=== PATIENT | male | born 1945 | race Caucasian/White ===

== ENCOUNTER 2016-07-14 06:56 | Inpatient (IN) | payer MEDICARE, OTHER ==
[2016-07-14] VITALS (437 sets, daily range): BP systolic 109–137; BP diastolic 70–88; PULSE 69–93; TEMP 97.7–98.7; O2SAT 87–99
[~2016-07-14] VITALS: Ht 175.3 cm; Wt 109.8 kg
[2016-07-14 07:52] LABS: MEAN CELL VOLUME 85 fl (80.0-100.0); MEAN CORPUSCULAR HGB CONC 30 g/dl (33.0-37.0); PLATELET COUNT 217 K/mm3 (130-400); RED BLOOD COUNT 3.73 M/mm3 (4.20-5.60); REDCELL DISTRIBUTION WIDTH-CV 16.4 % (11.5-14.5); WHITE BLOOD COUNT 7.5 K/mm3 (4.8-10.8)
[2016-07-14 07:57] LABS: HEMATOCRIT 31.8 % (42.0-52.0); HEMOGLOBIN 9.5 g/dl (13.5-18.0); MEAN CORPUSCULAR HEMOGLOBIN 25 pg (27.0-31.0)
[2016-07-14] MEDS ORDERED: TYLENOL 325MG325 MG PO (07:58)
[2016-07-14 07:59] LABS: PROTHROMBIN TIME 22.3 SECONDS (9.7-12.8)
[2016-07-14] MEDS ORDERED: CORRECTIVE LAXAT5 MG PO (07:59)
[2016-07-14] MEDS ORDERED: ASPIRIN E.C. 8181 MG PO (07:59)
[2016-07-14] MEDS ORDERED: CORDARONE200 MG/TAB PO (07:59)
[2016-07-14] MEDS ORDERED: COREG 3.123.125 MG/T PO (08:00)
[2016-07-14] MEDS ORDERED: LASIX 40MG TABL40 MG PO (08:00)
[2016-07-14 08:01] LABS: CALCIUM 9.1 mg/dL (8.4-10.2); CREATININE, serum 1.31 mg/dL (0.66-1.25); POTASSIUM 4.4 mmol/L (3.4-5.0)
[2016-07-14] MEDS ORDERED: NEURONTIN100 MG/CAP PO (08:01)
[2016-07-14] MEDS ORDERED: GLUCOTROL 5M5 MG/TAB PO (08:01)
[2016-07-14] MEDS ORDERED: LANTUS100 U/ML SQ (08:02)
[2016-07-14] MEDS ORDERED: MAG-OX 400400 MG/TAB PO (08:03)
[2016-07-14] MEDS ORDERED: KRILL OIL 3001 EACH PO (08:03)
[2016-07-14] MEDS ORDERED: MULTIPLE VITAMI1 CAP PO (08:13)
[2016-07-14] MEDS ORDERED: OXY IR5 MG PO (08:14)
[2016-07-14] MEDS ORDERED: CRESTOR20 MG PO (08:15)
[2016-07-14] MEDS ORDERED: FLOMAX 0.40.4 MG/CAP PO (08:15)
[2016-07-14] MEDS ORDERED: COUMADIN 22.5 MG/TAB PO (08:15)
[2016-07-15] VITALS (342 sets, daily range): BP systolic 87–131; BP diastolic 50–87; PULSE 69–76; TEMP 97–99.5; O2SAT 84–100
[2016-07-16 01:15] VITALS: BP 109/73; PULSE 69
[2016-07-16 03:26] VITALS: BP 119/66; PULSE 69; TEMP 98.2
[2016-07-16 07:35] VITALS: BP 108/85; PULSE 70; TEMP 98.4
[2016-07-16] MEDS ORDERED: BETAPACE 80MG80 MG PO (11:56)
== END 2016-07-16 13:05 | disposition home or self-care (01) | DRG 245 ==
LOC: COL.RAD 06:56 → ICU 12:00 → COL.RAD 12:15 → MEDICAL 07-15 11:02
PROVIDERS: Internal Medicine Cardiovascular Disease
PROC: 0JPT0PZ Removal of Cardiac Rhythm Related Device from Trunk Subcutaneous Tissue and Fascia, Open Approach (ICD-10-PCS; principal; 2016-07-14)
PROC: 0JH609Z Insertion of Cardiac Resynchronization Defibrillator Pulse Generator into Chest Subcutaneous Tissue and Fascia, Open Approach (ICD-10-PCS; 2016-07-14)
DX: Z45.010 Encounter for checking and testing of cardiac pacemaker pulse generator [battery] (principal); I50.22 Chronic systolic (congestive) heart failure; I48.0 Paroxysmal atrial fibrillation; I25.5 Ischemic cardiomyopathy; I25.10 Atherosclerotic heart disease of native coronary artery without angina pectoris; E11.9 Type 2 diabetes mellitus without complications; Z95.1 Presence of aortocoronary bypass graft; Z95.2 Presence of prosthetic heart valve; Z87.891 Personal history of nicotine dependence; Z79.4 Long term (current) use of insulin
CPT/HCPCS: OP; A6212; A6248; J0690; J1815; J2250; J3010; J7030

== ENCOUNTER 2016-09-01 08:03 | Day surgery (SDC) | payer MEDICARE, OTHER ==
[~2016-09-01] VITALS: Ht 175.4 cm; Wt 111.4 kg
[2016-09-01] VITALS (8 sets, daily range): BP systolic 94–125; BP diastolic 65–77; PULSE 70–80; TEMP 96.9–98
[~2016-09-01 08:03] MED LIST: ASPIRIN E.C. 8181 MG PO; BETAPACE 80MG80 MG PO; CORDARONE200 MG/TAB PO; COREG 3.123.125 MG/T PO; CORRECTIVE LAXAT5 MG PO; COUMADIN 22.5 MG/TAB PO; CRESTOR20 MG PO; FLOMAX 0.40.4 MG/CAP PO; GLUCOTROL 5M5 MG/TAB PO; KRILL OIL 3001 EACH PO; LANTUS100 U/ML SQ; LASIX 40MG TABL40 MG PO; MAG-OX 400400 MG/TAB PO; MULTIPLE VITAMI1 CAP PO; NEURONTIN100 MG/CAP PO; OXY IR5 MG PO; TYLENOL 325MG325 MG PO
[2016-09-01 08:40] LABS: MEAN CELL VOLUME 84 fl (80.0-100.0); MEAN CORPUSCULAR HGB CONC 30 g/dl (33.0-37.0); MEAN PLATELET VOLUME 10.7 fl (7.4-10.4); PLATELET COUNT 172 K/mm3 (130-400); RED BLOOD COUNT 4.29 M/mm3 (4.20-5.60); REDCELL DISTRIBUTION WIDTH-CV 17.6 % (11.5-14.5); WHITE BLOOD COUNT 7.3 K/mm3 (4.8-10.8)
[2016-09-01 08:48] LABS: HEMATOCRIT 36.1 % (42.0-52.0); HEMOGLOBIN 10.8 g/dl (13.5-18.0); MEAN CORPUSCULAR HEMOGLOBIN 25 pg (27.0-31.0)
[2016-09-01 08:56] LABS: CALCIUM 9.1 mg/dL (8.4-10.2); CREATININE, serum 1.17 mg/dL (0.66-1.25)
[2016-09-01] MEDS ORDERED: COUMADIN4 MG PO (09:07)
[2016-09-01 09:11] LABS: INR 2.8 (0.8-3.0); PROTHROMBIN TIME 31.7 SECONDS (9.7-12.8)
== END 2016-09-01 12:30 | disposition home or self-care (01) ==
LOC: EUO 08:03
PROVIDERS: Internal Medicine Cardiovascular Disease
DX: I49.01 Ventricular fibrillation (principal); I25.10 Atherosclerotic heart disease of native coronary artery without angina pectoris; I42.9 Cardiomyopathy, unspecified; Z95.1 Presence of aortocoronary bypass graft; Z79.899 Other long term (current) drug therapy; Z79.84 Long term (current) use of oral hypoglycemic drugs; Z79.01 Long term (current) use of anticoagulants; Z79.4 Long term (current) use of insulin
CPT/HCPCS: J2250; J3010; J7070

== ENCOUNTER 2017-04-08 14:02 | Day surgery (SDC) | payer MEDICARE, OTHER ==
[2017-04-08] VITALS (13 sets, daily range): BP systolic 91–109; BP diastolic 65–83; PULSE 69–82; TEMP 97.8
[~2017-04-08] VITALS: Ht 175.3 cm; Wt 68.1 kg
[~2017-04-08 14:02] MED LIST changes: +COUMADIN4 MG PO
[2017-04-08 14:55] LABS: INR 2.7 (0.8-3.0); PROTHROMBIN TIME 31.3 SECONDS (9.7-12.8)
[2017-04-08 15:23] LABS: THYROID STIMULATING HORMONE 3.33 uIU/mL (0.465-4.680)
== END 2017-04-08 16:55 | disposition home or self-care (01) ==
LOC: COL.CAR 14:02
PROVIDERS: Internal Medicine Cardiovascular Disease
DX: I48.92 Unspecified atrial flutter (principal); I48.0 Paroxysmal atrial fibrillation; I42.9 Cardiomyopathy, unspecified; Z95.1 Presence of aortocoronary bypass graft
CPT/HCPCS: J2250; J3010; J7030

== ENCOUNTER 2018-08-10 05:11 | Day surgery (SDC) | payer MEDICARE, OTHER ==
[~2018-08-10] VITALS: Ht 172.7 cm; Wt 116.7 kg
[~2018-08-10 05:11] MED LIST changes: -COUMADIN 22.5 MG/TAB PO; +COUMADIN 3MG3 MG/TAB PO; +IMDUR 30MG30 MG/TAB PO
[2018-08-10 05:40] VITALS: BP 103/60; PULSE 83; TEMP 97.6
[2018-08-10] MEDS ORDERED: BETAPACE160 MG PO (05:42)
[2018-08-10] MEDS ORDERED: COREG12.5 MG PO (05:42)
[2018-08-10] MEDS ORDERED: IMDUR 30MG30 MG/TAB PO (05:47)
[2018-08-10] MEDS ORDERED: VASOTEC 5MG5 MG/TAB PO (05:48)
[2018-08-10 11:10] VITALS: BP 155/97; PULSE 82; TEMP 97.6
--- NOTE | 2018-08-10 11:10 | NUR ---
Pt arrived back to floor at this time from PACU with PACU staff. Pt in bed resting, c/o severe pain to ABD and R shoulder. 3 lap sites are CDI. IMER to R flank draining sanguinous fluid. Can have ice chips and requesting, will continue to monitor.
[2018-08-10 11:25] VITALS: BP 145/76; PULSE 70; TEMP 97.6
[2018-08-10 11:40] VITALS: BP 146/79; PULSE 78; TEMP 97.6
[2018-08-10 11:45] VITALS: BP 146/79; PULSE 78; TEMP 97.6
--- NOTE | 2018-08-10 11:51 | NUR ---
Received transfer orders for arianna Le report now. PRN IV pain meds given per alisson as well as sips and chips. is taking all bleongings, packet ready, will wait for EMS to come and transport pt.
--- NOTE | 2018-08-10 11:58 | NUR ---
Report called to [facility] nurse.
--- NOTE | 2018-08-10 12:47 | NUR ---
EMS here to collect pt at this time. Pt left via cart with them, criteria met.
== END 2018-08-10 12:49 | disposition short-term general hospital (02) ==
LOC: SDCO 05:11
DX: K85.10 Biliary acute pancreatitis without necrosis or infection (principal); K80.10 Calculus of gallbladder with chronic cholecystitis without obstruction; I25.10 Atherosclerotic heart disease of native coronary artery without angina pectoris; Z95.1 Presence of aortocoronary bypass graft; I50.9 Heart failure, unspecified; I48.91 Unspecified atrial fibrillation; G47.33 Obstructive sleep apnea (adult) (pediatric); I25.2 Old myocardial infarction; I25.5 Ischemic cardiomyopathy; E11.42 Type 2 diabetes mellitus with diabetic polyneuropathy; N40.0 Benign prostatic hyperplasia without lower urinary tract symptoms; Z95.810 Presence of automatic (implantable) cardiac defibrillator; Z79.82 Long term (current) use of aspirin; Z79.4 Long term (current) use of insulin; Z88.3 Allergy status to other anti-infective agents; Z88.8 Allergy status to other drugs, medicaments and biological substances; Z91.030 Bee allergy status; Z79.01 Long term (current) use of anticoagulants; Z87.891 Personal history of nicotine dependence
CPT/HCPCS: J0690; J1170; J1815; J2250; J2405; J2704; J3010; J7030; J7120; Q9967

== ENCOUNTER 2021-02-28 09:58 | Day surgery (SDC) | payer MEDICARE ==
[2021-02-28] VITALS (9 sets, daily range): BP systolic 93–116; BP diastolic 66–74; PULSE 52–70; TEMP 98
[~2021-02-28] VITALS: Ht 172.8 cm; Wt 120.2 kg
[~2021-02-28 09:58] MED LIST changes: +BETAPACE160 MG PO; +COREG 6.256.25 MG/TA PO; +VASOTEC 5MG5 MG/TAB PO
[2021-02-28 11:17] LABS: HEMATOCRIT 43.9 % (42.0-52.0); HEMOGLOBIN 14.8 g/dl (13.5-18.0); MEAN CELL VOLUME 90 fl (80.0-100.0); MEAN CORPUSCULAR HEMOGLOBIN 30 pg (27.0-31.0); MEAN CORPUSCULAR HGB CONC 34 g/dl (33.0-37.0); MEAN PLATELET VOLUME 10.8 fl (7.4-10.4); PLATELET COUNT 171 K/mm3 (130-400); RED BLOOD COUNT 4.87 M/mm3 (4.20-5.60); REDCELL DISTRIBUTION WIDTH-CV 15.5 % (11.5-14.5)
[2021-02-28 11:22] LABS: INR 1.5 (0.8-3.0); PROTHROMBIN TIME 16.1 SECONDS (9.7-12.8)
[2021-02-28 11:26] LABS: CALCIUM 8.9 mg/dL (8.4-10.2); CREATININE, serum 0.97 (0.66-1.25); POTASSIUM 4.6 mmol/L (3.4-5.0)
[2021-02-28] MEDS ORDERED: COUMADIN 3MG3 MG/TAB PO (11:33)
[2021-02-28] MEDS ORDERED: COUMADIN4 MG PO (11:34)
[2021-02-28] MEDS ORDERED: CPAP (11:35)
--- NOTE | 2021-02-28 12:47 | NUR ---
SEE MERGE DOCUMENTATION FOR MEDICATION ADMINISTRATION AND INTRA/POST PROCEDURE SEDATION ASSESSMENTS.
[2021-02-28] MEDS ORDERED: CEPHALEXIN500 M1 PO (13:52)
--- NOTE | 2021-02-28 16:22 | NUR ---
Discharge instructions given to pt.pt verbalizes understanding.INT removed,catheter tip intact.
--- NOTE | 2021-02-28 16:47 | NUR ---
Pt escorted out via wheelchair by this nurse.
== END 2021-02-28 16:52 ==
LOC: COL.CAR 09:58
PROVIDERS: Internal Medicine Cardiovascular Disease
DX: Z45.010 Encounter for checking and testing of cardiac pacemaker pulse generator [battery] (principal); I47.2 Ventricular tachycardia; I25.2 Old myocardial infarction; E11.9 Type 2 diabetes mellitus without complications; E78.5 Hyperlipidemia, unspecified; G47.33 Obstructive sleep apnea (adult) (pediatric); Z99.89 Dependence on other enabling machines and devices; Z87.891 Personal history of nicotine dependence; Z20.822 Contact with and (suspected) exposure to COVID-19; Z79.82 Long term (current) use of aspirin; Z79.899 Other long term (current) drug therapy; Z79.84 Long term (current) use of oral hypoglycemic drugs
CPT/HCPCS: C1882; J0690; J2250; J2704; J3010